=== PATIENT | female | born 1980 | race Caucasian/White ===

== ENCOUNTER 2023-01-03 07:56 | Outpatient (CLI) | payer BC | END 2023-01-03 07:57 | disposition home or self-care (01) | LOC: CSHULT 07:56 | PROVIDERS: ATTEND Family Medicine | DX: R22.1 Localized swelling, mass and lump, neck (principal); E04.1 Nontoxic single thyroid nodule | CPT/HCPCS: 76536 ==

== ENCOUNTER 2023-04-17 15:26 | Outpatient (CLI) | payer BC | END 2023-04-17 15:27 | disposition home or self-care (01) | LOC: CSHMAMMO 15:26 | PROVIDERS: ATTEND Nurse Practitioner Family | DX: Z12.31 Encounter for screening mammogram for malignant neoplasm of breast (principal) | CPT/HCPCS: 77063; 77067 ==